=== PATIENT | female | born 1995 | race Asian ===

== ENCOUNTER 2024-08-29 01:21 | Inpatient (IN) ==
--- NOTE | 2024-08-29 02:36 | Emergency Department Note ---
Impression & Plan Suicidal ideation admit to 3 S. ED Provider Note NAME: YOAV BRYAN AGE: 29 SEX: Female INFORMANT: Patient ED PROVIDER(S): Regina Hassan DO CHIEF COMPLAINT: suicidal ideation PLAN: Disposition: admit to 3 S. 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 Patient states that her suicidal thoughts have become more intense and are lasting longer. She believes much of this may have been triggered when she was home of her holiday break she found out that her parents have and this was stressful for her. Patient explains that she is not able to get out of bed or care for herself. she has not been brushing her hair or brushing her teeth. laboratory studies were unremarkable. There was no leukocytosis or anemia. Renal function and glucose were normal. Alcohol level, Tylenol level and aspirin levels were negative. She denies any drug or alcohol use. She does admit that she was trying to think of ways to kill herself. Patient was felt to be medically cleared. She was evaluated by the ED psychiatric case specialist. She was referred to 3 S. They evaluated the patient and have agreed to accept them onto their unit as a voluntary admission. Care/management discussed with: ED psychiatric case specialist Triage Nursing notes: reviewed and agree with them. Vital Signs: reviewed and unremarkable Chronic Medical/Social Conditions affecting care: significant mental health issues for which she follows with psychiatry. The patient has had previous suicide attempts including an overdose which resulted in a 1 week stay in the ICU. Patient has remote history of self-mutilation but has not been cutting or self at all recently. Differential Diagnosis: Mood disorder, thought disorder, suicidal ideation, anxiety HPI: 29 year old Female arrives for evaluation of suicidal ideation. worsening suicidal ideation over the past 1 week. Patient states that her suicidal thoughts have become more intense and are lasting longer. She believes much of this may have been triggered when she was home of her holiday break she found out that her parents have and this was stressful for her. Patient explains that she is not able to get out of bed or care for herself. she has not been brushing her hair or brushing her teeth. PAST MEDICAL HISTORY: depression with previous overdose attempt, Previous self-injurious behavior but none recently. SOCIAL HISTORY: grad student at [employer], denies any drug or alcohol use. HOME MEDICATIONS: See list ALLERGIES: none VITALS: See Below PHYSICAL EXAMINATION: HEENT: Head - normocephalic and atraumatic. Pupils are equal, round, and reactive to light. Extraocular eye muscles are intact, and sclera are anicteric. Nose - moist nasal mucosa without discharge. Mouth - moist buccal mucosa. Oropharynx is nonerythematous and there is no tonsillar exudate or edema noted. Neck: Supple; no Cervical lymphadenopathy or thyromegaly Heart: Regular rate and rhythm. There is a normal S1 and S2 with no murmurs, clicks, or gallops appreciated. Lungs: Clear to auscultation bilaterally with no wheezes, rales, or rhonchi. Abdomen: Soft, completely nontender, nondistended, with good bowel sounds. There are no palpable pulsatile masses or hepatosplenomegaly. There is no guarding, rigidity, or rebound noted. Extremities: No evidence of cyanosis, clubbing, or edema. There are easily palpable peripheral pulses. Skin: warm and dry with good turgor and no rashes. psych: Patient has a flat affect with a normal thought process. There is no hallucinations noted. The patient does admit to suicidal thoughts but no specific plan. Emergency department course: The patient was evaluated in room A-7. A complete history and physical was performed. Laboratory studies were drawn as above. Patient was very pleasant on exam. Her boyfriend was present. She was willing to admit herself voluntarily for inpatient psychiatric care. She admits to being actively suicidal and researching ways to commit suicide. She has had previous suicide attempts. Past Med/Surg History Problem List (Updated 08/29/24 @ 16:00 by Regina Hassan DO) Suicidal ideation (Acute) Social History Smoking Status: Never smoker Preferred Language: Kazakh [employer] Required: No Beliefs That Will Affect Care: None Feels Safe at Home: Yes Gender Identity: Female Assistive Devices: None Allergies Allergies Allergy/AdvReac Type Severity Reaction Status Date / Time No Known Allergies Allergy Unverified 08/29/24 05:28 Home Meds Home Medications Medication Instructions Recorded Confirmed Abilify 5 mg HS 08/29/24 08/29/24 bupropion HCl 150 mg 24 hr tablet, 150 mg PO 08/29/24 extended release bupropion HCl 75 mg tablet 75 mg PO 08/29/24 spironolactone 150 mg DAILY 08/29/24 08/29/24 valacyclovir 500 mg tablet 500 mg HS 08/29/24 08/29/24 (Valtrex) Results & Data (ED) Vital Signs Vital Signs - 24 hr 08/29/24 01:27 08/29/24 03:30 08/29/24 03:37 Temperature 36.6 C Temperature Source Temporal Artery Scan Pulse Rate 86 Pulse Rate [Finger] 75 Pulse Rhythm Regular Pulse Strength Normal Respiratory Rate 18 15 15 Respiratory Effort / Characteristics Non-Labored Spontaneous Non-Labored Spontaneous Non-Labored Spontaneous Respiratory Depth Normal Normal Normal Respiratory Pattern Regular Regular Regular Blood Pressure 116/76 Blood Pressure [Left Arm] 110/73 Blood Pressure Mean 89 Blood Pressure Mean [Left Arm] 85 Pulse Oximetry 96 97 Oxygen Delivery Method Room Air Room Air Sepsis Recent Fever Within 48 Hours No Sepsis New/Unexplained Change in Mental Status No Sepsis Action Taken by Nursing No Action Required Laboratory Data 08/29/24 02:13 08/29/24 02:13 Lab Results 08/29/24 08/29/24 Range/Units 01:46 02:13 WBC 6.08 (4.8-10.8) K/ul RBC 4.83 (4.20-5.40) M/uL Hgb 14.8 (12.0-16.0) g/dl Hct 43.0 (37.0-47.0) % MCV 89.0 (80.0-100.0) fL MCH 30.6 (25.0-34.0) pg MCHC 34.4 (32.0-36.0) g/dL RDW Std Deviation 36.9 (36.4-46.3) fL RDW Coeff of Riley 11.5 (11.5-14.5) % Plt Count 251 (130-400) K/uL MPV 8.8 L (9.4-12.4) fL Immature Gran % (Auto) 0.2 % Neut % (Auto) 46.9 % Lymph % (Auto) 43.1 % [place] % (Auto) 8.1 % Eos % (Auto) 1.5 % Baso % (Auto) 0.2 % Neut # (Auto) 2.86 (1.40-6.50) K/uL Lymph # (Auto) 2.62 (1.20-3.40) K/uL [place] # (Auto) 0.49 (0.11-0.59) K/uL Eos # (Auto) 0.09 (0.00-0.50) K/uL Baso # (Auto) 0.01 (0.00-0.20) K/uL Immature Gran # (Auto) 0.01 (0.01-0.20) K/uL Sodium 137 (136-145) mmol/L Potassium 4.1 (3.5-5.1) mmol/L Chloride 105 (98-107) mmol/L Carbon Dioxide 26 (21-32) mmol/L Anion Gap 6 (3-11) BUN 21 (6-23) mg/dl Creatinine 0.84 (0.6-1.2) mg/dl Est Cr Clr Drug Dosing 90.5 ml/min eGFR 97.62 BUN/Creatinine Ratio 25.0 H (10-20) Glucose 93 (70-99(Fasting)) mg/dl Calcium 9.4 (8.6-10.3) mg/dl Total Bilirubin 0.3 (0.2-1.0) mg/dl AST 13 (13-39) U/L ALT 12 (7-52) U/L Alkaline Phosphatase 50 (34-104) U/L Total Protein 7.5 (6.0-8.3) gm/dl Albumin 4.5 (3.4-5.0) gm/dl Globulin 3.0 (2.5-4.0) gm/dl Albumin/Globulin Ratio 1.5 (0.9-2) TSH 1.623 (0.300-4.500) uIu/ml HCG, Qual Negative (Negative) Urine Color Yellow Urine Appearance Clear (Clear) Urine pH 5.5 (4.5-7.5) Ur Specific [place] 1.033 H (1.000-1.030) Urine Protein Negative (Negative) Urine Glucose (UA) Negative (Negative) Urine Ketones Negative (Negative) Urine Blood 1+ H (Negative) Urine Nitrite Negative (Negative) Urine Bilirubin Negative (Negative) Urine Urobilinogen Negative (Negative) Ur Leukocyte Esterase Negative (Negative) Urine WBC (Auto) 0-5 (0-5) /hpf Urine RBC (Auto) 0-2 (0-2) /hpf U Hyaline Cast (Auto) 0-2 (0-2) /lpf U Epithel Cells (Auto) 3-5 H (0-2) /hpf Urine Bacteria (Auto) None Seen (None Seen) Salicylates < 3.0 L (3.0-30) mg/dl Urine Opiates Screen Neg (Neg) Ur Methadone, Qual Neg (Neg) Urine Fentanyl Screen Neg (Neg) Acetaminophen < 3 L (10-30) ug/ml Urine Barbiturates Neg (Neg) Ur Phencyclidine (PCP) Neg (Neg) U Amphetamin/Meth Scrn Neg (Neg) MDMA (Ecstasy) Screen Pos H (Neg) U Benzodiazepines Scrn Neg (Neg) Ur Cocaine Metabolite Neg (Neg) U Marijuana (THC) Screen Neg (Neg) Ethyl Alcohol mg/dL < 10.0 (<10.0) mg/dl SARS-CoV-2, RNA, NAAT NEGATIVE (NEGATIVE) Discharge Plan Visit Data Chief Complaint: Mental Health Evaluation Stated Complaint: SUICIDAL THOUGHTS,CC CRISIS SENT ED Provider: Regina Hassan Discharge Problem: Suicidal ideation Patient Disposition: Admitted As Inpatient Discharge Instructions Interventions: ED Discharge Assessment Last Done: 08/29/24 05:07
[2024-08-29 02:37] LABS: Basophils # (auto) 0.01 K/uL (0.00-0.20); Basophils % (auto) 0.2 %; Eosinophils # (auto) 0.09 K/uL (0.00-0.50); Eosinophils % (auto) 1.5 %; Hemoglobin 14.8 g/dl (12.0-16.0); Immature Granulocytes # (auto) 0.01 K/uL (0.01-0.20); Immature Granulocytes % (auto) 0.2 %; Lymphocytes # (auto) 2.62 K/uL (1.20-3.40); Lymphocytes % (auto) 43.1 %; Mean Corpuscular Hemoglobin 30.6 pg (25.0-34.0); Mean Corpuscular Hgb Conc 34.4 g/dL (32.0-36.0); Mean Platelet Volume 8.8 fL (9.4-12.4); Monocytes # (auto) 0.49 K/uL (0.11-0.59); Monocytes % (auto) 8.1 %; Neutrophils # (auto) 2.86 K/uL (1.40-6.50); Neutrophils % (auto) 46.9 %; Platelet Count 251 K/uL (130-400); RDW Coefficient of Variation 11.5 % (11.5-14.5); RDW Standard Deviation 36.9 fL (36.4-46.3); Red Blood Count 4.83 M/uL (4.20-5.40); White Blood Count 6.08 K/ul (4.8-10.8)
[2024-08-29 02:40] LABS: Appearance Urine Clear (Clear); Bacteria Urine Automated None Seen (None Seen); Bilirubin Urine Negative (Negative); Blood Urine 1+ (Negative); Cast Urine Automated 0-2 /lpf (0-2); Color Urine Yellow; Glucose Urine UA Negative (Negative); Ketones Urine Negative (Negative); Leukocyte Esterase Urine Negative (Negative); Nitrite Urine Negative (Negative); Protein Urine Negative (Negative); RBC Urine Automated 0-2 /hpf (0-2); Specific Gravity Urine 1.033 (1.000-1.030); Urobilinogen Urine Negative (Negative); WBC Urine Automated 0-5 /hpf (0-5); pH Urine 5.5 (4.5-7.5)
[2024-08-29 02:52] LABS: Albumin Globulin Ratio 1.5 (0.9-2); Albumin Level 4.5 gm/dl (3.4-5.0); Bilirubin,Total 0.3 mg/dl (0.2-1.0); Calcium 9.4 mg/dl (8.6-10.3); Creatinine Clr Calc Pharmacy 90.5 ml/min; Potassium 4.1 mmol/L (3.5-5.1); Total Protein 7.5 gm/dl (6.0-8.3)
[2024-08-29 02:56] LABS: Pregnancy Test, Serum Negative (Negative)
[2024-08-29 03:04] LABS: Acetaminophen < 3 ug/ml (10-30); Salicylate < 3.0 mg/dl (3.0-30)
[2024-08-29 03:04] LABS: Amphetamines+Metham, Urine Neg (Neg); Barbiturates, Urine Neg (Neg); Benzodiazepine, Urine Neg (Neg); Cocaine, Urine Neg (Neg); Fentanyl, Urine Neg (Neg); MDMA (Ecstacy), Urine Pos (Neg); Marijuana, Urine Neg (Neg); Methadone, Urine Neg (Neg); Opiate, Urine Neg (Neg); Phencyclidine, Urine Neg (Neg)
[2024-08-29 03:07] LABS: Thyroid Stimulating Hormone 1.623 uIu/ml (0.300-4.500)
[2024-08-29] MEDS ORDERED: ACETAMINOPHEN 325 MG TAB PO PRN (05:28)
[2024-08-29] MEDS ORDERED: MAGNESIUM HYDROXIDE SUSP 30 ML UDC PO PRN (05:28)
[2024-08-29] MEDS ORDERED: BISMUTH SUBSALICYLATE 262 MG CHEW PO PRN (05:28)
[2024-08-29] MEDS ORDERED: hydrOXYzine HCl 25 MG TAB PO PRN ×2 (05:28)
[2024-08-29] MEDS ORDERED: SODIUM CHLORIDE 0.65% NA SOLN 45 ML (OCEAN) PRN (05:28)
[2024-08-29] MEDS ORDERED: ALUMINUM/MAGNESIUM SUSP 30 ML UDC PO PRN (05:28)
--- OUTSIDE RECORDS SUMMARY | 2024-08-29 06:13 | External Medical Summary | Summary of Care ---
Author Name Unknown Organization [facility] Address [address] [place] [address] Phone [phone] Care Team Providers Care Spiral Binder Name Role Phone Unavailable Primary Care Provider Unavailabl e Reason for Visit * Reason Comments Follow Up Patient here for scr atches on her left hand from her pet rats she got on Wednesday. Has used benadryl cream and HC cream. Encounter Details Date Type Department Care Team (Late st Contact Info) Description 07/27/2024 9:40 AM EST Office Visit Dermatology, Kash Feliciano [address] [phone] Seema Haynes PA-C [address] [phone] Animal scratch* Allergies No known active allergiesdocumented as of this encounter (statuses as of 07/27/2024) Medications ARIPiprazole 5 MG Oral Tablet (Abilify) 06/28/2024 Active buPROPion HCl 75 MG Oral Tablet (Wellbutrin) 06/28/2024 Active buPROPion HCl ER (XL) 150 MG Oral Tablet Extended Release 24 Hour (Wellbutrin XL) 06/28/2024 Act ina Spironolactone 100 MG Oral Tablet (Aldactone) Takes 150 mg daily. 07/18/2024 Active valACYclovir HCl 500 MG Oral Tablet (Valtrex) 06/10/2024 Ac tive documented as of this encounter (statuses as of 07/27/2024) Active Problems No known active problems documented as of this encounter (statuses as of 07/27/2024) Social History Tobacco Use Types Packs/Day Years Used Date Smoking Tobacco: Never Smokeless Tobacco: Never Comments Unknown Sex and Gender Information Value Date Recorded Sex Assigned at Female 07/20/2024 2:57 PM EST Legal Sex Female 11:30 AM EDT Gender Identity Female 07/20/2024 2:57 PM EST Sexual Orientation Bisexual 07/20/2024 2: 57 PM EST documented as of this encounter Progress Notes * Charlie Lujan MD - 07/27/2024 9:40 AM EST I have reviewed the relevant notes and photographs taken by MILLA Deras. I have reviewed and agree with the assessment and plan. Charlie Lujan MD * Seema Haynes PA-C - 07/27/2024 9:08 AM EST SUBJECTIVE: CC: Patient here for scratches on her left hand from her pet rats she got on Wednesday. Has used benadryl cream and HC cream. HPI: Minna Vargas is a 29 year old female seen for scratches from her pet rats. Last visit on 07/21/2024 with [facility]. Scratched by pet rat on Wednesday on her L hand (got rats in March from pet store and are clean/proper hygiene- not wild rats). She washed the area with soap and water and put neosporin on it. Yesterday woke up to a rash on that area that was itchy. Put hydrocortisone cream 1% and Benadryl cream onit. Right now rash better. Still itchy but not painful. Denies any pain with movement of hand. REVIEW OF SYSTEMS: See HPI- all other findings negative Constitutional: (-) fever, chills, sweats, weight loss Cardiovascular: (-) lower extremity edema Skin: (-) no rash or new or changing moles or skin lesions No past medical history on file. There is no problem list on file for this patient. SOCIAL HISTORY: Social History Tobacco Use Smoking status: Never Smokeless tobacco: Never Substance Use Topics Alcohol use: Not on file Vaping/E-Cigarette Use Vaping/E-Cigarette Use Never User Vaping/E-Cigarette Substances Vaping/E-Cigarette Devices MEDICATIONS: Current Outpatient Medications Medication Sig Dispense Refill ARIPiprazole 5 MG Oral Tablet (Abilify) buPROPion HCl 75 MG Oral Tablet (Wellbutrin) buPROPion HCl ER (XL) 150 MG Oral Tablet Extended Release 24 Hour (Wellbutrin XL) Spironolactone 100 MG Oral Tablet (Aldactone) Takes 150 mg daily. valACYclovir HCl 500 MG Oral Tablet (Valtrex) No current facility-administered medications for this visit. ALLERGIES: Patient has no known allergies. OBJECTIVE: GEN: Healthy, alert, no distress, appears oriented, pleasant, and cooperative. PSYCH: Appropriate mood and affect, alert SKIN: Detailed exam of hands was completed and are within normal limits with the following exceptions: 1. Linear excoriations on dorsal L hand consistent with scratches. No evidence of infection ASSESSMENT/PLAN: Animal scratch (pet rats) -No evidence of infection at this time. Did wash area with soap and water and apply neosporin. -Has a bit of underlying eczematous dermatitis. Can apply HCT 1% BID with moisturizer for this. -Call if develops significant redness, weeping/drainage, pain of site or hand or fevers. Patient alone today. Follow-up: PRN Photos taken 1-5, patient consented to photos. Patient Phone Numbers Applicable photos (if any) and chart reviewed by Dr. Manjit Lujan The patient was encouraged to contact me with any further questions or concerns. Seema Haynes PA-C 07/27/2024 9:08 AM documented in this encounter Nursing Notes * Ely Barrios LPN - 07/27/2024 9:10 AM EST Chief Complaint Patient presents with Follow Up Patient here for scratches on her left hand from her pet rats she got on Wednesday. Has used benadryl cream and HC cream. documented in this encounter Plan of Treatment Health Maintenance Due Date Last Done Comments Depression Screening 2009 HIV Screening 2012 Hepatitis C Screening 2015 DTap/Tdap Vaccines (1 - Tdap) 2016 Hepatitis B Vaccine (1 of 3 - 19+ 3-dose series) 2016 Pap Smear 2018 COVID-19 Vaccine Completed 04/21/2024 Influenza Vaccine (FLU shot) Completed 01/2024, 06/15/2023 HPV (Gardasil) Vaccine Aged Out No lo nger eligible based on patient's age to complete this topic MENINGOCOCCAL (MENACTRA/MENVEO) Aged Out No longer eligible b ased on patient's age to complete this topic Pneumococcal Vaccine: Pediatrics (0 to 5 Years) and At-Risk Patients (6 to 64 Years) Aged Out No longer eligible b ased on patient's age to complete this topic documented as of this encounter Medical Devices Not on filedocumented as of this encounter Procedures Procedure Name Priority Date/Time Associated Diagnosis Comments DERM EXAM - DERM (IMAGES ONLY, NO REPORT) Routine 07/27/2024 9:23 AM EST Animal scratch documented in this encounter Results * DERM EXAM - DERM (IMAGES ONLY, NO REPORT) (07/27/2024 9:23 AM EST) Narrative Scheduling, Silent - 07/27/2024 9:23 AM EST This is an imaging study not interpreted or resulted by a [facility] or [facility] contracted radiologist. Seema Haynes PA-C RADIOLOGY (RAD GENERAL) Final Result documented in this encounter Visit Diagnoses Diagnosis Animal scratch- Primary Other and unspecified superficial injury of other, multiple, and unspecified sites, without mention of infection documented in this encounter
--- OUTSIDE RECORDS SUMMARY | 2024-08-29 06:13 | External Medical Summary | Summary of Care ---
Author Name Unknown Organization [facility] Address [address] [place] [address] Phone [phone] Care Team Providers Care Preschool Paraprofessional Name Role Phone Unavailable Primary Care Provider Unavailabl e Reason for Visit * Reason Comments NEW PATIENT Lump behind right ea r - [facility] - no bacteria so they suggested she comes here to be checked. * Evaluate & Treat - Unlimited Visits (Within 3 days (urgent)) - Authorized Specialty Diagnoses / Procedures Referred By Ana best Referred To Contact Dermatology Diagnoses Cellulitis of right external ear Rebecca Garzon PA-C [address] [place] [address] Phone: tel: fax: Referral ID Status Reason Start Date Expiration Date Visits Requested Visits Authorized [id number] Authorized Specialty Services Required 07/19/[phone] Encounter Details Date Type Department Care Team ([facility] Contact Info) Description 07/21/2024 9:20 AM EST Office Visit Dermatology, Kash Feliciaon [address] [phone] Sabine Sharp PA-C [address] [phone] EIC (epidermal inclusion cyst)* Allergies No known active allergiesdocumented as of this encounter (statuses as of 07/21/2024) Medications ARIPiprazole 5 MG Oral Tablet (Abilify) [...] as of this encounter (statuses as of 07/21/2024) Active Problems No known active problems documented as of this encounter (statuses as of 07/21/2024) Social History Tobacco Use Types Packs/Day Years Used Date Smoking Tobacco: Never Smokeless Tobacco: Never Tobacco Cessation:Counseling Given: Not Answered Comments Unknown Sex and Gender Information Value Date Recorded Sex Assigned at Female 07/20/2024 2:57 PM EST Legal Sex Female 11:30 AM EDT Gender Identity Female 07/20/2024 2:57 PM EST Sexual Orientation Bisexual 07/20/2024 2: 57 PM EST documented as of this encounter Progress Notes * Sabine Sharp PA-C - 07/21/2024 9:20 AM EST SUBJECTIVE: CC: Chief Complaint Patient presents with NEW PATIENT Lump behind right ear - had a culture at [facility] - no bacteria so they suggested she comes here to be checked. HPI: Minna Vargas is a 29 year old female seen at the request of Rebecca Garzon PA-C for evaluation and treatment of skin lesion. Lesion behind right ear that onset approx 5 years ago and has been coming and going. She states it has flared approx 5 times over this time window and gets sore and drains pus. She had a recent evaluation at urgent care, 07/11/24, for most recent flare and started on Bactrim to cover until culture returned then stopped as culture was negative. She states the short time of taking antibiotic she really did not see any change. She states things seem to be pretty much back tobaseline. 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 R posterior earlobe - < 2mm skin colored nodule with crusted punctum. Erythema and pink scaling noted of surrounding skin and crease of ear. ASSESSMENT/PLAN: Favor EIC due to reported recurrent flares. - DERM EXAM - DERM (IMAGES ONLY, NO REPORT) - Not currently inflamed or symptomatic - Discussed that definitive treatment would involve surgical excision, she defers for now and will reach out if she would decide to pursue. Patient alone today. Follow-up: PRN Photos taken, patient consented to photos. Applicable photos (if any) and chart reviewed by Dr. Bay Larose. The patient was encouraged to contact me with any further questions or concerns. Sabine Sharp PA-C 07/21/2024 documented in this encounter Nursing Notes * Florence Jacobson LPN - 07/21/2024 9:10 AM EST Chief Complaint Patient presents with NEW PATIENT Lump behind right ear - [facility] a culture [facility] - no bacteria so they suggested she comes here to be checked. documented in this encounter Plan of Treatment [...] - DERM (IMAGES ONLY, NO REPORT) Routine 07/21/2024 9:51 AM EST EIC (epidermal inclusion cyst) documented in this encounter Results * DERM EXAM - DERM (IMAGES ONLY, NO REPORT) (07/21/2024 9:51 AM EST) Narrative Scheduling, Silent - 07/21/2024 9:51 AM EST This is an imaging study not interpreted or resulted by a [facility] or [facility] contracted radiologist. us Sabine Sharp PA-C RADIOLOGY (RAD GENERAL) Final Result documented in this encounter Visit Diagnoses Diagnosis EIC (epidermal inclusion cyst)- Primary Sebaceous cyst documented in this encounter
--- OUTSIDE RECORDS SUMMARY | 2024-08-29 06:13 | External Medical Summary | Summary of Care ---
Author Name Unknown Organization [facility] Address [address] [place] [address] Phone [phone] Care Team Providers Care Chip Frier Name Role Phone Unavailable Primary Care Provider [...] of right external ear Rebecca Garzon PA-C [address] [place] [address] Phone: tel: fax: Referral ID Status Reason Start Date Expiration Date Visits Requested Visits Authorized [id number] Authorized Specialty Services Required 07/19/[phone] Encounter Details Date Type Department Care Team ([facility] Contact Info) Description 07/21/2024 9:20 AM EST Office Visit Dermatology, Kash Feliciano [address] [phone] Sabine Sharp PA-C [address] [phone] EIC (epidermal inclusion cyst)* Allergies No known [...] as of this encounter Progress Notes * Bay Larose MD - 07/21/2024 1:18 PM EST I have reviewed the charting notes and orders and associated images and agree with the assessment and plan of Sabine Sharp PA-C . Bay Larose MD., Dermatology [facility] [address] [place] [address] * Sabine Sharp PA-C - 07/21/2024 9:20 [...] ear - had a culture at [facility] - no bacteria so they [...] study not interpreted or resulted by a [employer] or [employer] contracted radiologist. us Sabine Sharp PA-C RADIOLOGY (RAD GENERAL) Final Result documented in this encounter Visit Diagnoses Diagnosis EIC (epidermal inclusion cyst)- Primary Sebaceous cyst documented in this encounter
--- OUTSIDE RECORDS SUMMARY | 2024-08-29 06:13 | External Medical Summary | Summary of Care ---
Author Name Unknown Organization [facility] Address [address] [facility] [place] [address] Phone [phone] Care Team Providers Care Toeing Stockings Name Role Phone Unavailable Primary Care Provider [...] [address] [phone] Seema Haynes PA-C [address] [phone] Animal scratch* Allergies No known active allergiesdocumented [...] as of this encounter Progress Notes * Seema Haynes PA-C - 07/27/2024 9:08 [...] interpreted or resulted by a [facility] or [employer] [facility] [facility] contracted radiologist. Seema Haynes PA-C RADIOLOGY (RAD GENERAL) Final Result documented in this encounter Visit Diagnoses Diagnosis Animal scratch- Primary Other and unspecified superficial injury of other, multiple, and unspecified sites, without mention of infection documented in this encounter
--- OUTSIDE RECORDS SUMMARY | 2024-08-29 06:13 | External Medical Summary | Summary of Care ---
Author Name Unknown Organization [facility] Address [address] [place] [address] Phone [phone] Care Team Providers Care Interlibrary Loan Specialist Name Role Phone Unavailable Primary Care Provider Unavailabl e Reason for Referral * Evaluate & Treat - Unlimited Visits (Within 3 days (urgent)) - Authorized Specialty Diagnoses / Procedures Referred By Ana best Referred To Contact Dermatology Diagnoses Cellulitis of right external ear Rebecca Garzon PA-C [address] [place] [address] Phone: tel: fax: Referral ID Status Reason Start Date Expiration Date Visits Requested Visits Authorized [id number] Authorized Specialty Services Required 07/19/2024 [id number] Question Answer Referral Priority Within 3 days (urgent) Where should this appointment be scheduled? [facility] Are you referring the patient for Mohs Surgery and have a current positive skin cancer biopsy result? No What is the reason for the patient referral? Rash/Skin Check/Eval of Lesion or Mole Comments Cellulitis of right external ear Encounter Details Date Type Department Care Team ([facility] st Contact Info) Description 07/19/2024 Orders Only Access Center, [place] [address] [facility] Ext *DO NOT REMOVE THIS DEPARTMENT* [place] [id number] Request, External Referral Cellulitis of right external ear* Social History Tobacco Use Types Packs/Day Years Used Date Smoking Tobacco: Never Assessed Utilities Answer Date Recorded Do you have trouble paying y our heating, water, or electric bill? (Adult - for ages 18 years and over) Not on file 02/01/2024 Is your family able to pay t he heat, water, or electric bill? (Household - for ages 0-17 years) Not on file 02/01/2024 Does your family have access to good internet? (Household - for ages 0-17 years) Not on file 02/01/2024 Social Connections Answer Date Recorded How often do you feel lonely or isolated from those around you? (Adult - for ages 18 years and over) Not on file 02/01/2024 Comments Unknown Sex and Gender Information Value Date Recorded Sex Assigned at Not on file Legal Sex Female 11:30 AM EDT Gender Identity Not on file Sexual Orientation Not on file documented as of this encounter Plan of Treatment Scheduled Referrals Name Type Priority Associated Diagnoses Orde r Schedule DERMATOLOGY REFERRAL OP Referral Within 3 days (urgent) Cellulitis of right external ear Ordered: 07/19/2024 Health Maintenance Due Date Last Done Comments Depression Screening 2009 HIV Screening 2012 Hepatitis C Screening 2015 DTap/Tdap Vaccines (1 - Tdap) 2016 Hepatitis B Vaccine (1 of 3 - 19+ 3-dose series) 2016 Pap Smear 2018 COVID-19 Vaccine (2023-2 5 season) 2024 Influenza Vaccine (FLU shot) (#1) 2024 HPV (Gardasil) Vaccine Aged Out No lo nger eligible based on patient's age to complete this topic MENINGOCOCCAL (MENACTRA/MENVEO) Aged Out No longer eligible based on patient's age to complete this topic Pneumococcal Vaccine: Pediat rics (0 to 5 Years) and At-Risk Patients (6 to 64 Years) Aged Out No longer eligible b ased on patient's age to complete this topic documented as of this encounter Medical Devices Not on filedocumented as of this encounter Visit Diagnoses Diagnosis Cellulitis of right external ear- Primary Infective otitis externa, unspecified documented in this encounter
--- OUTSIDE RECORDS SUMMARY | 2024-08-29 06:13 | External Medical Summary | Summary of Care ---
Author Name Unknown Organization [facility] Address [address] [place] [address] Phone [phone] Care Team Providers Care Client Service And Consulting Manager Name Role Phone Unavailable Primary Care Provider Unavailabl e Encounter Details Date Type Department Care Team (Latest Contact Info) Description 07/27/2024 9:23 AM EST - 07/27/2024 11:59 PM EST Hospital Encounter Radiology Film File [address] [place] [address] Arrived Discharge Disposition: Home - Self Care Allergies No known active allergiesdocumented as of this encounter (statuses as of 07/28/2024) Medications ARIPiprazole 5 MG Oral Tablet (Abilify) [...] as of this encounter (statuses as of 07/28/2024) Active Problems No known active problems documented as of this encounter (statuses as of 07/28/2024) Social History Tobacco Use Types Packs/Day Years Used Date Smoking Tobacco: Never Smokeless Tobacco: Never Comments Unknown Sex and Gender Information Value Date Recorded Sex Assigned at Female 07/20/2024 2:57 PM EST Legal Sex Female 11:30 AM EDT Gender Identity Female 07/20/2024 2:57 PM EST Sexual Orientation Bisexual 07/20/2024 2: 57 PM EST documented as of this encounter Plan of Treatment Health Maintenance [...] interpreted or resulted by a [facility] or [employer] contracted radiologist. Seema Haynes PA-C RADIOLOGY (RAD GENERAL) Final Result documented in this encounter
--- OUTSIDE RECORDS SUMMARY | 2024-08-29 06:13 | External Medical Summary | Summary of Care ---
Author Name Unknown Organization [facility] Address [address] [place] [address] Phone [phone] Care Team Providers Care Hospital Security Officer Name Role Phone Unavailable Primary Care Provider Unavailabl e Encounter Details Date Type Department Care Team (Latest Contact Info) Description 07/21/2024 9:51 AM EST - 07/21/2024 11:59 PM EST Hospital Encounter Radiology Film File [address] [place] [address] Arrived Discharge Disposition: Home - Self Care Allergies No known active allergiesdocumented as of this encounter (statuses as of 07/22/2024) Medications ARIPiprazole 5 MG Oral Tablet (Abilify) [...] as of this encounter (statuses as of 07/22/2024) Active Problems No known active problems documented as of this encounter (statuses as of 07/22/2024) Social History Tobacco Use Types Packs/Day Years [...] study not interpreted or resulted by a [employer], a [employer] or [employer] contracted radiologist. us Sabine Sharp PA-C RADIOLOGY (RAD GENERAL) Final Result documented in this encounter
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
--- NOTE | 2024-08-29 08:37 | Psychiatric Progress Note ---
Date of Service August 29, 2024 Interval History Chief Complaint "[]". Review of Systems Sleep Information Total Hours of Sleep: 0.5 Sleep Comments: Admitted early in the morning Subjective Subjective Patient was seen & assessed and interval progress reviewed with [treatment team] [nursing and social work] Slept 2 hours. Refused prn gabapentin until this am. Still intrusive, perseverating on concerns with medication. Physical Exam Vital Signs (Past 24 Hours) Last Vital Signs Temp 36.7 C 08/29/24 05:40 Pulse 77 08/29/24 05:40 Resp 18 08/29/24 05:40 BP 111/67 08/29/24 05:40 Pulse Ox 99 08/29/24 05:40 O2 Del Method Room Air 08/29/24 05:40 Results & Data ([facility]) Laboratory Results Laboratory Results - last 24 hr 08/29/24 08/29/24 01:46 02:13 WBC 6.08 RBC 4.83 Hgb 14.8 Hct 43.0 MCV 89.0 MCH 30.6 MCHC 34.4 RDW Std Deviation 36.9 RDW Coeff of Riley 11.5 Plt Count 251 MPV 8.8 L Immature Gran % (Auto) 0.2 Neut % (Auto) 46.9 Lymph % (Auto) 43.1 [place] % (Auto) 8.1 Eos % (Auto) 1.5 Baso % (Auto) 0.2 Neut # (Auto) 2.86 Lymph # (Auto) 2.62 [place] # (Auto) 0.49 Eos # (Auto) 0.09 Baso # (Auto) 0.01 Immature Gran # (Auto) 0.01 Sodium 137 Potassium 4.1 Chloride 105 Carbon Dioxide 26 Anion Gap 6 BUN 21 Creatinine 0.84 Est Cr Clr Drug Dosing 90.5 eGFR 97.62 BUN/Creatinine Ratio 25.0 H Glucose 93 Calcium 9.4 Total Bilirubin 0.3 AST 13 ALT 12 Alkaline Phosphatase 50 Total Protein 7.5 Albumin 4.5 Globulin 3.0 Albumin/Globulin Ratio 1.5 TSH 1.623 HCG, Qual Negative Urine Color Yellow Urine Appearance Clear Urine pH 5.5 Ur Specific [place] 1.033 H Urine Protein Negative Urine Glucose (UA) Negative Urine Ketones Negative Urine Blood 1+ H Urine Nitrite Negative Urine Bilirubin Negative Urine Urobilinogen Negative Ur Leukocyte Esterase Negative Urine WBC (Auto) 0-5 Urine RBC (Auto) 0-2 U Hyaline Cast (Auto) 0-2 U Epithel Cells (Auto) 3-5 H Urine Bacteria (Auto) None Seen Salicylates < 3.0 L Urine Opiates Screen Neg Ur Methadone, Qual Neg Urine Fentanyl Screen Neg Acetaminophen < 3 L Urine Barbiturates Neg Ur Phencyclidine (PCP) Neg U Amphetamin/Meth Scrn Neg Urine MDEA Pending MDMA (Ecstasy) Screen Pos H MDMA Pending Urine MDMA Pending U Benzodiazepines Scrn Neg Ur Cocaine Metabolite Neg U Marijuana (THC) Screen Neg Ethyl Alcohol mg/dL < 10.0 SARS-CoV-2, RNA, NAAT NEGATIVE Current Inpatient Medications Current Inpatient Medications: Current Inpatient Medications Acetaminophen (Acetaminophen 325 Mg Tab) 650 mg PO Q4H PRN PRN Reason: Headache or Minor Fever Stop: 09/28/24 05:27 Al Hydrox/Mg Hydrox/Simethicone (Aluminum/Magnesium Susp 30 Ml Udc) 30 ml PO Q4H PRN PRN Reason: GI Upset Stop: 09/28/24 05:27 Bismuth Subsalicylate (Bismuth Subsalicylate 262 Mg Chew) 2 tab PO Q30M PRN PRN Reason: Loose Stool/Diarrhea Stop: 09/28/24 05:27 Hydroxyzine HCl (Hydroxyzine Hcl 25 Mg Tab) 50 mg PO HSZ PRN PRN Reason: Insomnia Stop: 09/28/24 05:27 Hydroxyzine HCl (Hydroxyzine Hcl 25 Mg Tab) 25 mg PO Q4H PRN PRN Reason: Anxiety Stop: 09/28/24 05:27 Magnesium Hydroxide (Magnesium Hydroxide Susp 30 Ml Udc) 30 ml PO DAILY PRN PRN Reason: Constipation Stop: 09/28/24 05:27 Sodium Chloride (Sodium Chloride 0.65% Na Soln 45 Ml ([place])) 1 - 2 sprays NA PRN PRN PRN Reason: Nasal Dryness/Congestion Stop: 09/28/24 05:27 Mental Health & Subst Abuse Tx Therapist Name of Therapist: [facility] Administrator Name of Distribution Center Administrator: [facility]
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
[2024-08-30] MEDS: SPIRONOLACTONE 100 MG TAB PO ONE (16:56)
[2024-08-30] MEDS: buPROPion XL 300 MG TABCR PO SCH (16:57)
[2024-08-30] MEDS: SPIRONOLACTONE 25 MG TAB PO ONE (16:57)
[2024-08-30] MEDS: ARIPiprazole 5 MG TAB PO SCH (21:14)
[2024-08-30] MEDS: valACYclovir HCL 500 MG TABLET PO SCH (21:14)
[2024-08-31] MEDS: SPIRONOLACTONE 25 MG TAB PO SCH (09:06)
[2024-08-31] MEDS: SPIRONOLACTONE 100 MG TAB PO SCH (09:07)
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
--- NOTE | 2024-09-01 09:56 | Discharge Summary ---
Date of Service September 01, 2024 History of Present Illness The patient reported a significant decrease in mood and motivation after returning home for winter break to find that her parents had unexpectedly. She had lost all motivation to do her work upon returning and spent the last two days before admission only leaving bed to use the bathroom, eating once daily, not drinking water, showering, or brushing her teeth. Although having thoughts of suicide, she did not have a concrete plan. Patient has a history of borderline personality disorder, with multiple prior psychiatric hospitalizations for suicidal ideation, as well as one serious suicide attempt via overdose on Lexapro around age 14-15 that required a week in the ICU. She has been seeing psychiatrists and therapists since her early teens. Current medications of Wellbutrin XL 150mg in the morning, Wellbutrin IR 75mg, spironolactone 150mg, Valtrex 500mg, and Abilify 5mg at night were started in March 2023 and had been working well for her until this recent stressor. Physical Exam Psychiatric A+Ox3, euthymic affect Orientation: alert and oriented x 3 Apperance: appropriately dressed, appropriately groomed and appeared stated age Eye Contact: good eye contact Motor Behavior: steady gait and station and no abnormal motor movements Speech: normal rate/rhythm/volume of speech Affect: euthymic affect and + anxious affect Mood: + anxious mood Thought Process: goal directed thought process, linear/logical thought process and clear/coherent thought process Thought Content: + preoccupation and reality based without delusions Suicidal Thoughts: denies suicidal plan and denies suicidal intent Homicidal Thoughts: denies homicidal thoughts, denies homicidal plan and denies homicidal intent Cognition: recent memory grossly intact, remote memory grossly intact, attention grossly intact and language grossly intact Estimated Intelligence: + above average estimated intelligence Insight: excellent insight Judgment: + fair judgement Vital Signs (Past 24 Hours) Last Vital Signs Temp 36.8 C 09/01/24 06:34 Pulse 108 H 09/01/24 06:35 Resp 16 09/01/24 06:34 BP 100/67 09/01/24 06:35 Pulse Ox 99 08/29/24 05:40 O2 Del Method Room Air 08/29/24 05:40 Principal Diagnosis Borderline PD Psychiatric Data See daily stay summary. In short, safety was maintained and the patient was cooperative with care. Medication changes included increasing Wellbutrin XL to 300mg daily and they tolerated this well. Abilify 5mg qhs was continued along with her other medication. A family session was [held] and safety plan was completed prior to discharge. Day of Discharge Assessment Today the patient voices readiness for discharge. They note improvement in mood and deny thoughts to harm self or others. Thoughts remain organized and they are improved from admission. There is no evidence of psychosis. They agree to take mediations as prescribed and keep follow-up appointments. They are stable for discharge to outpatient level of care. Transition of Care Transition Of Care Record: was reviewed with the patient Advance Directives Advance Directives Information Provided: Yes Advance Directives: No Mental Health Advance Directive: No Advance Directives on File: No Living Will: No Power of Research Phlebotomist: No Advance Directives Reason:: Declines as Mental Health Visit. Risk Factors Assessment Male: No : No Do You Have Access To A Gun?: No Health Problems: No Mental Health Diagnoses: Yes Substance Use Disorders: No Previous Attempt: Yes Family History of Suicide: No Previous Psychiatric Hospitalization: Yes Hopelessness: No Protective Factors Assessment : No Employed: Yes Stable Relationships: Yes Supportive Family: Yes Good Rapport with Provider: Yes Discharge Data Lab Results 08/29/24 08/29/24 01:46 02:13 WBC 6.08 RBC 4.83 Hgb 14.8 Hct 43.0 MCV 89.0 MCH 30.6 MCHC 34.4 RDW Std Deviation 36.9 RDW Coeff of Riley 11.5 Plt Count 251 MPV 8.8 L Immature Gran % (Auto) 0.2 Neut % (Auto) 46.9 Lymph % (Auto) 43.1 [place] % (Auto) 8.1 Eos % (Auto) 1.5 Baso % (Auto) 0.2 Neut # (Auto) 2.86 Lymph # (Auto) 2.62 [place]entry # (Auto) 0.49 Eos # (Auto) 0.09 Baso # (Auto) 0.01 Immature Gran # (Auto) 0.01 Sodium 137 Potassium 4.1 Chloride 105 Carbon Dioxide 26 Anion Gap 6 BUN 21 Creatinine 0.84 Est Cr Clr Drug Dosing 90.5 eGFR 97.62 BUN/Creatinine Ratio 25.0 H Glucose 93 Calcium 9.4 Total Bilirubin 0.3 AST 13 ALT 12 Alkaline Phosphatase 50 Total Protein 7.5 Albumin 4.5 Globulin 3.0 Albumin/Globulin Ratio 1.5 TSH 1.623 HCG, Qual Negative Urine Color Yellow Urine Appearance Clear Urine pH 5.5 Ur Specific [place] 1.033 H Urine Protein Negative Urine Glucose (UA) Negative Urine Ketones Negative Urine Blood 1+ H Urine Nitrite Negative Urine Bilirubin Negative Urine Urobilinogen Negative Ur Leukocyte Esterase Negative Urine WBC (Auto) 0-5 Urine RBC (Auto) 0-2 U Hyaline Cast (Auto) 0-2 U Epithel Cells (Auto) 3-5 H Urine Bacteria (Auto) None Seen Salicylates < 3.0 L Urine Opiates Screen Neg Ur Methadone, Qual Neg Urine Fentanyl Screen Neg Acetaminophen < 3 L Urine Barbiturates Neg Ur Phencyclidine (PCP) Neg U Amphetamin/Meth Scrn Neg MDMA (Ecstasy) Screen Pos H U Benzodiazepines Scrn Neg Ur Cocaine Metabolite Neg U Marijuana (THC) Screen Neg Ethyl Alcohol mg/dL < 10.0 SARS-CoV-2, RNA, NAAT NEGATIVE Hospital Course (1) Borderline personality disorder: IOP DBT via [facility] (2) Suicidal ideation: None at discharge. (3) Major depressive disorder with current active episode: Continue current meds, attend therapy, follow up with Dr Hankins. Plan Continue current medication regimen: Wellbutrin XL 300mg PO daily Spironolactone 150mg PO daily Valtrex 500mg PO daily Abilify 5mg PO QHS -Referred to intensive outpatient program (IOP) for DBT (e.g. [facility]) to resume after discharge Overall I spent a total of 30 minutes for including review of chart records, review of labwork, direct evaluation of the patient, counseling the patient, ordering medication, risk assessment, discussion with the psychiatric liason RN and documentation in the electronic health record. Mental Health & Subst Abuse Tx Psychiatrist Name of Psychiatrist: Dr. North Bailey - Online psychiatrist Date Of Appointment With Psychiatric Provider: 09/05/23 Time of Appointment with Psychiatrist: 3:30PM Therapist Name of Therapist: [facility] Intensive outpatient program Therapist's Date of Therapist Appointment: 09/08/24 Time of Therapist Appointment: 1pm Records Management Coordinator Name of Records Management Coordinator: None Post Discharge Appointments Primary Care Physician Name Of Family Doctor/PCP: [facility] Other #1: Name of Aftercare Appointment: Student care and advocacy - [facility] post hospitalization meeting Phone Number of Aftercare Appointment: [phone] Date of Aftercare Appointment: 09/06/24 Time of Aftercare Appointment: 2PM Aftercare Appointment Comment: zoom link will be sent to your [facility] email Contact Information Discharge Discharge Address: [address] [facility] [address] Discharge Plan Discharge Items Patient Disposition: Home - Self-Care Reason For Visit: UNSPECIFIED DEPRESSIVE DISORDER Discharge Diagnosis: Major Depressive Disorder Recurrent, Severe without Psychotic Features Borderline PD Condition on Discharge: Good Health Concerns: Herpes Acne Activity: Resume your previous activity Lifting: Gradually increase as tolerated Bathing: No limitations Sexual Activity: When tolerated Exercise/Sports: As tolerated Driving/Machine Use: No limitations Weightbearing: Full weightbearing Non-emergency contact: Primary Care Provider, Psychiatrist and Product Representative Call non-emergency contact if: you have any medication questions and your symptoms worsen Follow-up/Referrals: Sabine Pepper PA-C [Primary Care Provider] - Diet: Regular Addtl Attending Provider Instructions: SPECIAL CARE INSTRUCTIONS: 1. Follow through with your scheduled aftercare appointments. If unable to keep an appointment, please call to reschedule. 2. Take your medication only as prescribed. Medication should not be changed or stopped without the approval of your doctor. In the event of worsening symptoms or concerns about side effects, contact your doctor immediately. 3. Utilize new healthy coping skills, anger management skills, and stress management skills learned during your hospitalization. Journal feelings and process them with a support person. Identify stressors or situations that may result in relapse, deterioration or inappropriate behaviors and develop a plan to deal with those issues. 4. If your coping skills are ineffective and you are in crisis, contact your outpatient providers for direction. If unable to reach your providers, please call the [facility] CRISIS LINE AT , go to the [facility] walk-in center at [address], [place], or go to the closest Emergency Room. 5. Avoid alcohol and un-prescribed drugs. 6. You have been provided with the Mental Health Advance Directives Pamphlet for your review. 7. Your condition is stable for discharge to outpatient level of care, but recovery is an ongoing process. Ifthoughts to harm yourself or others return, follow the safety plan developed during your stay. Planning for a safe return home includes securing weapons. Our treatment team recommends weaponsbe removed from the home until your outpatient provider reassesses your progress. In rare cases where the items themselvescannot be removed, guns and ammunitionshould be secured separatelyand keys stored by a reliable personoutside of the home. If you were admitted on an involuntary commitment, the police or other legal authorities may be involved in this process. AFTERCARE APPOINTMENTS: * Please call your insurance company prior to your scheduled appointment to confirm your aftercare providers are covered. Take your insurance information to your appointments. WHO TO CALL AND WHEN: Medical Emergencies: For questions or emergencies related to your hospital stay, please contact the Inpatient Behavioral Health Unit at [phone]. A psychiatric aide is on-call 08/03 for the Behavioral Health Unit for emergencies At any time you feel your situation is an emergency, you may also call 911 immediately. Pending Studies at Discharge: No Stand-Alone Forms: My [facility] [employer], Smoking Cessation Medications and DC Order Prescriptions: Continued Abilify 5 mg 5 mg HS Rx Instructions: takes HS valacyclovir [Valtrex] 500 mg Tablet 500 mg HS spironolactone 150 mg DAILY Rx Instructions: takes in AM Discontinued bupropion HCl 150 mg tablet extended release 24 hr 150 mg PO bupropion HCl 75 mg tablet 75 mg PO Krames/Other Patient Handouts: BPD Admission Data Admit Date/Time: 08/29/24 04:49 Attending Provider: Abad Moya Admit Provider: Abad Moya Primary Care Provider: Sabine Pepper Coding [place] [address] D/C day mgmt 30 min or < Patient Type Established History Problem Focused Exam Problem Focused Medical Decision Making Straight Forward Diagnoses Borderline personality disorder F60.3 Suicidal ideation R45.851 Severe episode of recurrent major depressive disorder, without psychotic features F33.2 Major depression recurrence: recurrent Major depression episode severity: severe Psychotic features: without psychotic features Time Spent (min) 30
[2024-09-01 13:43] LABS: MDA negative; MDEA negative; MDMA (Ecstasy) Urine, Confirm negative
== END 2024-09-01 11:17 | disposition home or self-care (01) | DRG 885 ==
LOC: ED 01:21 → 3S 04:49
DX: R45.851 Suicidal ideations; F33.2 Major depressive disorder, recurrent severe without psychotic features; F60.3 Borderline personality disorder